=== PATIENT | male | born 1950 | race Caucasian/White ===

== ENCOUNTER → 2017-02-06 | Outpatient (CLI) | payer OTHER ==
[~2017-02-06] MED LIST: ACYC-114 PO; ASPI-650 PO; CARV-39 PO; CYCL-259 PO; CYCL50TA PO; DEXA4TAB PO; EZET10TA3 PO; FLUC100T4 PO; FURO-92 PO; OMEP-110 PO; ONDA8TAB9 PO; POTA20TA91 PO; PRED10TA PO; PREG100C PO; REGADENOSON 0.4 MG/5 ML SYRINGE ONE; SULF1TAB24 PO
== END | disposition home or self-care (01) ==
LOC: CFH 07:50
PROVIDERS: ATTEND Internal Medicine Cardiovascular Disease
DX: R07.9 Chest pain, unspecified (principal); I10 Essential (primary) hypertension; Z95.5 Presence of coronary angioplasty implant and graft
CPT/HCPCS: 78452; 93017; A9502; J2785

== ENCOUNTER → 2017-10-22 | Outpatient (CLI) | payer OTHER ==
[~2017-10-22] MED LIST changes: +EZET10TA18 PO; -EZET10TA3 PO; -REGADENOSON 0.4 MG/5 ML SYRINGE ONE
== END | disposition home or self-care (01) ==
LOC: CFH 10:12
PROVIDERS: ATTEND Physician Assistant Medical
DX: I08.3 Combined rheumatic disorders of mitral, aortic and tricuspid valves (principal); I27.20 Pulmonary hypertension, unspecified; I25.10 Atherosclerotic heart disease of native coronary artery without angina pectoris
CPT/HCPCS: 93306

== ENCOUNTER → 2019-12-01 | Outpatient (CLI) | payer BC ==
[~2019-12-01] MED LIST changes: -EZET10TA18 PO; +EZET10TA70 PO
== END | disposition home or self-care (01) ==
LOC: CFH 10:27
PROVIDERS: ATTEND Internal Medicine Cardiovascular Disease
DX: J43.9 Emphysema, unspecified (principal); I10 Essential (primary) hypertension; I27.29 Other secondary pulmonary hypertension
CPT/HCPCS: 71046

== ENCOUNTER → 2021-05-13 | Outpatient (CLI) | payer MEDICARE ==
[~2021-05-13] MED LIST changes: -ACYC-114 PO; +ACYC-40 PO; +ASPI-1026 PO; -ASPI-650 PO; -CYCL-259 PO; +CYCL10TA2 PO; +SULF-23 PO; -SULF1TAB24 PO
== END | disposition home or self-care (01) ==
LOC: CVU 13:53
PROVIDERS: ATTEND Internal Medicine Hematology & Oncology
DX: C90.00 Multiple myeloma not having achieved remission (principal); I08.8 Other rheumatic multiple valve diseases; I10 Essential (primary) hypertension; J44.9 Chronic obstructive pulmonary disease, unspecified
CPT/HCPCS: 93306; 93356